=== PATIENT | male | born 1995 | race Hispanic/Latino ===

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

== ENCOUNTER 2017-11-24 08:47 | Emergency (ER) | payer MEDICAID, OTHER ==
[2017-11-24 08:57] VITALS: BP 151/107
[2017-11-24 09:18] LABS: Basophils # (Auto) 0.1 K/mm3 (0.0-0.1); Basophils % (Auto) 0.8 % (0.0-1.8); Eosinophils # (Auto) 0.3 K/mm3 (0.0-0.4); Eosinophils % (Auto) 2.4 % (0.0-4.3); Hematocrit 47.5 % (35.5-45.6); Hemoglobin 15.9 gm/dl (11.8-15.2); Lymphocytes # (Auto) 3.6 K/mm3 (1.2-5.4); Lymphocytes % (Auto) 34.4 % (13.4-35.0); Mean Corpuscular HGB Conc 34 % (32-34); Mean Corpuscular Hemoglobin 31 pg (28-32); Mean Corpuscular Volume 92 fl (84-94); Monocytes # (Auto) 0.8 K/mm3 (0.0-0.8); Monocytes % (Auto) 7.7 % (0.0-7.3); Platelet Count 367 K/mm3 (140-440); Red Blood Count 5.19 M/mm3 (3.65-5.03); Red Cell Distribution Width 12.7 % (13.2-15.2)
[2017-11-24 09:33] LABS: Bilirubin,Urine NEG (Negative); Blood,Urine NEG (Negative); Color,Urine Yellow (Yellow); Mucus,Urine 2+ /HPF
[2017-11-24 09:35] LABS: BUN/Creatinine Ratio 7; Blood Urea Nitrogen 6 mg/dL (9-20); Calcium 8.9 mg/dL (8.4-10.2); Hemolysis Index 6
[2017-11-24 09:38] LABS: Cocaine Screen,Urine PRESUMPTIVE NEGATIVE; Methadone Screen,Urine PRESUMPTIVE NEGATIVE; Opiate Screen,Urine PRESUMPTIVE NEGATIVE
[2017-11-24 09:55] LABS: Amphetamine Screen,Urine PRESUMPTIVE POSITIVE; Benzodiazepines Screen,Urine PRESUMPTIVE POSITIVE; Cannabinoid Screen,Urine PRESUMPTIVE POSITIVE
--- NOTE | 2017-11-24 11:45 | Emergency Department Report ---
ED Psych HPI - General Chief Complaint: Psych Stated Complaint: MEDICAL CLEARENCE Time Seen by Provider: 11/24/17 10:49 Source: patient Mode of arrival: Ambulatory - History of Present Illness Initial Comments: This is a 21-year-old man that reports to the emergency department requesting medical clearance for "detox". It appears that he communicated with anchor prior to arrival. He was told I assume to get medical clearance here. Unfortunately the patient is unwilling to tell me what sort of drugs he needs detox from. He will not identify any substances. He does not admit depression. He does not admit to suicidal thoughts or violent ideation. He denies overdose Apparently he has been here for overdose in the past. I did inform him that it is difficult to place him for a detox if he is willing to provide a history. Not withstanding that we proceeded with dental health evaluation. I told the patient that the counselor would speak to him and I would continue with his medical clearance. However, he eloped perhaps a half hour later. MD Complaint: other -: month(s), year(s) Associated Psychiatric Symptoms: none History of same: Yes Associated Symptoms: denies other symptoms - Related Data Home Medications Medication Instructions Recorded Confirmed Last Taken Quetiapine Fumarate [SEROquel XR] 2 tab PO QHS 10/15/16 10/19/16 10/14/16 600 MG Divalproex ER [DepaKOTE ER] 1,000 mg PO HS 10/20/16 10/20/16 Unknown Previous Rx's Medication Instructions Recorded Last Taken Type Clindamycin [Clindamycin CAP] 450 mg PO TID #54 capsule 10/20/16 Unknown Rx Allergies Allergy/AdvReac Type Severity Reaction Status Date / Time No Known Allergies Allergy Verified 10/19/16 00:45 ED Review of Systems ROS: Stated complaint: MEDICAL CLEARENCE Other details as noted in HPI Comment: All other systems reviewed and negative (patient denies any symptoms. However, he is on it willing to provide a history of his substance abuse.) ED Past Medical Hx - Past Medical History Previous Medical History?: Yes Hx Hypertension: No Hx Heart Attack/AMI: No Hx Congestive Heart Failure: No Hx Deep Vein Thrombosis: No Hx Pulmonary Embolism: No Hx GERD: No Hx Liver Disease: No Hx Renal Disease: No Hx Sickle Cell Disease: No Hx Headaches / Migraines: No Hx Seizures: No Hx Kidney Stones: No Hx Psychiatric Treatment: Yes Hx Asthma: No Hx COPD: No Hx Tuberculosis: No Hx Dementia: No Additional medical history: fx skull - Surgical History Past Surgical History?: No - Social History Smoking Status: Current Every Day Smoker Substance Use Type: Methamphetamines, Other - Medications Home Medications: Home Medications Medication Instructions Recorded Confirmed Last Taken Type Quetiapine Fumarate [SEROquel XR] 2 tab PO QHS 10/15/16 10/19/16 10/14/16 History 600 MG Clindamycin [Clindamycin CAP] 450 mg PO TID #54 capsule 10/20/16 Unknown Rx Divalproex ER [DepaKOTE ER] 1,000 mg PO HS 10/20/16 10/20/16 Unknown History ED Physical Exam - General Limitations: No Limitations General appearance: alert, in no apparent distress - Head Head exam: Present: atraumatic, normocephalic - Eye Eye exam: Present: normal appearance. Absent: scleral icterus - ENT ENT exam: Present: mucous membranes moist - Neck Neck exam: Present: normal inspection. Absent: tenderness, meningismus - Respiratory Respiratory exam: Present: normal lung sounds bilaterally. Absent: respiratory distress - Cardiovascular Cardiovascular Exam: Present: regular rate, normal rhythm. Absent: systolic murmur, diastolic murmur, rubs, gallop - GI/Abdominal GI/Abdominal exam: Present: soft, normal bowel sounds. Absent: distended, tenderness, guarding, rebound, rigid - Rectal Rectal exam: Present: deferred - Extremities Exam Extremities exam: Present: normal inspection - Back Exam Back exam: Present: normal inspection - Neurological Exam Neurological exam: Present: alert, oriented X3, CN II-XII intact. Absent: motor sensory deficit - Psychiatric Psychiatric exam: Present: normal mood, flat affect - Skin Skin exam: Present: warm, dry, intact, normal color. Absent: rash ED Course Vital Signs 11/24/17 08:53 Temperature 97.7 F Pulse Rate 123 H Respiratory 18 Rate Blood Pressure 151/107 O2 Sat by Pulse 98 Oximetry - Reevaluation(s) Reevaluation #1: The patient eloped to mental health counselor evaluating his options for detox. 11/24/17 11:46 ED Medical Decision Making - Lab Data Result diagrams: 11/24/17 08:58 11/24/17 08:58 Laboratory Results - last 24 hr 11/24/17 11/24/17 11/24/17 08:58 08:58 08:58 WBC RBC Hgb Hct MCV MCH MCHC RDW Plt Count Lymph % (Auto) [place] % (Auto) Eos % (Auto) Baso % (Auto) Lymph # [place] # Eos # Baso # Seg Neutrophils % Seg Neutrophils # Sodium 143 Potassium 4.3 Chloride 100.9 Carbon Dioxide 30 Anion Gap 16 BUN 6 L Creatinine 0.9 Estimated GFR > 60 BUN/Creatinine Ratio 7 Glucose 125 H Calcium 8.9 Urine Color Urine Turbidity Urine pH Ur Specific [place] Urine Protein Urine Glucose (UA) Urine Ketones Urine Blood Urine Nitrite Urine Bilirubin Urine Urobilinogen Ur Leukocyte Esterase Urine WBC (Auto) Urine RBC (Auto) U Epithel Cells (Auto) Urine Mucus Salicylates < 0.3 L Urine Opiates Screen Urine Methadone Screen Acetaminophen < 5.0 L Ur Barbiturates Screen Ur Phencyclidine Scrn Ur Amphetamines Screen U Benzodiazepines Scrn Urine Cocaine Screen U Marijuana (THC) Screen Drugs of Abuse Note Plasma/Serum Alcohol 11/24/17 11/24/17 11/24/17 08:58 08:58 09:05 WBC 10.4 RBC 5.19 H Hgb 15.9 H Hct 47.5 H MCV 92 MCH 31 MCHC 34 RDW 12.7 L Plt Count 367 Lymph % (Auto) 34.4 [place] % (Auto) 7.7 H Eos % (Auto) 2.4 Baso % (Auto) 0.8 Lymph # 3.6 [place] # 0.8 Eos # 0.3 Baso # 0.1 Seg Neutrophils % 54.7 Seg Neutrophils # 5.7 Sodium Potassium Chloride Carbon Dioxide Anion Gap BUN Creatinine Estimated GFR BUN/Creatinine Ratio Glucose Calcium Urine Color Yellow Urine Turbidity Clear Urine pH 5.0 Ur Specific [place] 1.026 Urine Protein 30 mg/dl Urine Glucose (UA) Neg Urine Ketones Tr Urine Blood Neg Urine Nitrite Neg Urine Bilirubin Neg Urine Urobilinogen 2.0 Ur Leukocyte Esterase Neg Urine WBC (Auto) 1.0 Urine RBC (Auto) 2.0 U Epithel Cells (Auto) < 1.0 Urine Mucus 2+ Salicylates Urine Opiates Screen Urine Methadone Screen Acetaminophen Ur Barbiturates Screen Ur Phencyclidine Scrn Ur Amphetamines Screen U Benzodiazepines Scrn Urine Cocaine Screen U Marijuana (THC) Screen Drugs of Abuse Note Plasma/Serum Alcohol < 0.01 06/07/18 09:05 WBC RBC Hgb Hct MCV MCH MCHC RDW Plt Count Lymph % (Auto) [place] % (Auto) Eos % (Auto) Baso % (Auto) Lymph # [place] # Eos # Baso # Seg Neutrophils % Seg Neutrophils # Sodium Potassium Chloride Carbon Dioxide Anion Gap BUN Creatinine Estimated GFR BUN/Creatinine Ratio Glucose Calcium Urine Color Urine Turbidity Urine pH Ur Specific [place] Urine Protein Urine Glucose (UA) Urine Ketones Urine Blood Urine Nitrite Urine Bilirubin Urine Urobilinogen Ur Leukocyte Esterase Urine WBC (Auto) Urine RBC (Auto) U Epithel Cells (Auto) Urine Mucus Salicylates Urine Opiates Screen Presumptive negative Urine Methadone Screen Presumptive negative Acetaminophen Ur Barbiturates Screen Presumptive negative Ur Phencyclidine Scrn Presumptive negative Ur Amphetamines Screen Presumptive positive U Benzodiazepines Scrn Presumptive positive Urine Cocaine Screen Presumptive negative U Marijuana (THC) Screen Presumptive positive Drugs of Abuse Note Disclamer Plasma/Serum Alcohol Critical care attestation.: If time is entered above; I have spent that time in minutes in the direct care of this critically ill patient, excluding procedure time. ED Disposition Clinical Impression: Polysubstance abuse Disposition: ELOPED Is pt being admited?: No Does the pt Need Aspirin: No Condition: Stable Referrals: PRIMARY CARE [Primary Care Provider] - 3-5 Days Time of Disposition: 11:47
== END 2017-11-24 11:42 | disposition left against medical advice (07) ==
LOC: ED 08:47
DX: F19.10 Other psychoactive substance abuse, uncomplicated (principal); Z88.1 Allergy status to other antibiotic agents; F17.200 Nicotine dependence, unspecified, uncomplicated
CPT/HCPCS: 36415; 80048; 80307; 81001; 85025; 99283; G0480; 80320

== ENCOUNTER 2017-12-03 09:23 | Emergency (ER) | payer MEDICAID ==
[2017-12-03] MEDS ORDERED: ASPIRIN ONE (09:39)
[2017-12-03] MEDS ORDERED: ASPIRIN PO ONE (09:39)
[2017-12-03 09:40] VITALS: BP 146/99
== END 2017-12-03 09:50 | disposition left against medical advice (07) ==
LOC: ED 09:23
DX: Z00.8 Encounter for other general examination (principal); Z53.21 Procedure and treatment not carried out due to patient leaving prior to being seen by health care provider
CPT/HCPCS: 93005; 93010

== ENCOUNTER 2017-12-04 18:19 | Emergency (ER) | payer MEDICAID ==
[2017-12-04 18:41] VITALS: BP 144/99
[2017-12-04 19:20] LABS: Basophils # (Auto) 0.1 K/mm3 (0.0-0.1); Basophils % (Auto) 0.7 % (0.0-1.8); Eosinophils # (Auto) 0.1 K/mm3 (0.0-0.4); Hematocrit 44.8 % (35.5-45.6); Hemoglobin 15.3 gm/dl (11.8-15.2); Lymphocytes # (Auto) 2.5 K/mm3 (1.2-5.4); Mean Corpuscular HGB Conc 34 % (32-34); Mean Corpuscular Hemoglobin 31 pg (28-32); Mean Corpuscular Volume 90 fl (84-94); Monocytes # (Auto) 1.5 K/mm3 (0.0-0.8); Monocytes % (Auto) 12.5 % (0.0-7.3); Platelet Count 312 K/mm3 (140-440); Red Blood Count 4.97 M/mm3 (3.65-5.03); Red Cell Distribution Width 12.6 % (13.2-15.2)
[2017-12-04 19:26] LABS: Cannabinoid Screen,Urine PRESUMPTIVE NEGATIVE; Cocaine Screen,Urine PRESUMPTIVE NEGATIVE; Methadone Screen,Urine PRESUMPTIVE NEGATIVE; Opiate Screen,Urine PRESUMPTIVE NEGATIVE
[2017-12-04 19:32] LABS: BUN/Creatinine Ratio 14; Blood Urea Nitrogen 13 mg/dL (9-20); Hemolysis Index 5
[2017-12-04 19:41] LABS: Amphetamine Screen,Urine PRESUMPTIVE POSITIVE; Benzodiazepines Screen,Urine PRESUMPTIVE POSITIVE
--- NOTE | 2017-12-04 20:49 | Emergency Department Report ---
ED Medical Clearance HPI - General Chief complaint: Medical Clearance Stated complaint: MEDICAL CLEARANCE Time Seen by Provider: 12/04/17 18:53 Source: patient Mode of arrival: Ambulatory - History of Present Illness Initial comments: This is a 21-year-old male nontoxic, well nourished in appearance, no acute signs of distress presents to the ED for medical clearance to anchor log. Patient stated that he is currently going today for substance abuse and wants rehabilitation. Patient denies any symptoms. He states he is asymptomatic. Patient stated has been feeling slight depression but denies any suicidal or homicidal indication. Denies any auditory hallucination. Patient denies any chest pain, shortness of breath, fever, chills, nausea, vomiting, chest pain, shortness of breath, back pain or headache or stiff neck. Patient denies any allergies. Past medical history includes bipolar. Patient stated he takes all his medications on a daily bases. Patient stated that 2 days ago he did do benzodiazepines and amphetamines. MD Complaint: medical clearance request Alledged Intoxication: No Compliant with Home Medications: Yes Traumatic Symptoms: denies traumatic injury Associated Symptoms: denies other symptoms. denies: chest pain, shortness of breath, palpitations, diaphoresis, confusion, cough, fever/chills, headaches, anorexia, malaise, nausea/vomiting, rash, seizure, syncope, weakness Treatments Prior to Arrival: none Home medications: Home Medications Medication Instructions Recorded Confirmed Last Taken Quetiapine Fumarate [SEROquel XR] 2 tab PO QHS 10/15/16 10/19/16 10/14/16 600 MG Divalproex ER [DepaKOTE ER] 1,000 mg PO HS 10/20/16 10/20/16 Unknown Previous Rx's Medication Instructions Recorded Last Taken Type Clindamycin [Clindamycin CAP] 450 mg PO TID #54 capsule 10/20/16 Unknown Rx Allergies/Adverse reactions: Allergies Allergy/AdvReac Type Severity Reaction Status Date / Time No Known Allergies Allergy Verified 10/19/16 00:45 ED Review of Systems ROS: Stated complaint: MEDICAL CLEARANCE Other details as noted in HPI Constitutional: denies: chills, fever Eyes: denies: eye pain, eye discharge, vision change ENT: denies: ear pain, throat pain Respiratory: denies: cough, shortness of breath, wheezing Cardiovascular: denies: chest pain, palpitations Endocrine: no symptoms reported Gastrointestinal: denies: abdominal pain, nausea, diarrhea Genitourinary: denies: urgency, dysuria Musculoskeletal: denies: back pain, joint swelling, arthralgia Skin: denies: rash, lesions Neurological: denies: headache, weakness, paresthesias Psychiatric: denies: anxiety, depression Hematological/Lymphatic: denies: easy bleeding, easy bruising ED Past Medical Hx - Past Medical History Hx Hypertension: No Hx Heart Attack/AMI: No Hx Congestive Heart Failure: No Hx Deep Vein Thrombosis: No Hx Pulmonary Embolism: No Hx GERD: No Hx Liver Disease: No Hx Renal Disease: No Hx Sickle Cell Disease: No Hx Headaches / Migraines: No Hx Seizures: No Hx Kidney Stones: No Hx Psychiatric Treatment: Yes (BIPOLAR) Hx Asthma: No Hx COPD: No Hx Tuberculosis: No Hx Dementia: No Additional medical history: fx skull - Social History Smoking Status: Current Every Day Smoker Substance Use Type: Methamphetamines - Medications Home Medications: Home Medications Medication Instructions Recorded Confirmed Last Taken Type Quetiapine Fumarate [SEROquel XR] 2 tab PO QHS 10/15/16 10/19/16 10/14/16 History 600 MG Clindamycin [Clindamycin CAP] 450 mg PO TID #54 capsule 10/20/16 Unknown Rx Divalproex ER [DepaKOTE ER] 1,000 mg PO HS 10/20/16 10/20/16 Unknown History ED Physical Exam - General Limitations: No Limitations General appearance: alert, in no apparent distress - Head Head exam: Present: atraumatic, normocephalic - Eye Eye exam: Present: normal appearance - ENT ENT exam: Present: normal exam, mucous membranes moist - Neck Neck exam: Present: normal inspection, full ROM. Absent: tenderness, meningismus, lymphadenopathy - Respiratory Respiratory exam: Present: normal lung sounds bilaterally. Absent: respiratory distress, wheezes, rales, rhonchi, stridor, chest wall tenderness, accessory muscle use, decreased breath sounds, prolonged expiratory - Cardiovascular Cardiovascular Exam: Present: regular rate, normal rhythm, normal heart sounds. Absent: irregular rhythm, systolic murmur, diastolic murmur, rubs, gallop - GI/Abdominal GI/Abdominal exam: Present: soft, normal bowel sounds. Absent: distended, tenderness, guarding, rebound, rigid, diminished bowel sounds - Rectal Rectal exam: Present: deferred - Extremities Exam Extremities exam: Present: normal inspection, full ROM, normal capillary refill - Back Exam Back exam: Present: normal inspection, full ROM - Neurological Exam Neurological exam: Present: alert, oriented X3, normal gait - Psychiatric Psychiatric exam: Present: normal affect, normal mood - Skin Skin exam: Present: warm, dry, intact, normal color. Absent: rash ED Course Vital Signs 12/04/17 18:36 Temperature 98.9 F Pulse Rate 136 H Respiratory 18 Rate Blood Pressure 144/99 O2 Sat by Pulse 98 Oximetry - Reevaluation(s) Reevaluation #1: 12/04/17 20:53 Patient is speaking in full sentences with no signs of distress noted. ED Medical Decision Making - Lab Data Result diagrams: 12/04/17 19:14 12/04/17 19:14 - Medical Decision Making 21-year-old male that presents with a medical clearance. CBC and BMP obtained within normal limits. UA within normal limits. Negative for alcohol in the system. Upon urine drug screen is positive for amphetamines and benzodiazepine and otherwise are all negative. Patient is medically cleared. Patient was referred to Follow-up with a primary care doctor in 3-5 days or if symptoms worsen and continue return to emergency room as soon as possible. At time of discharge, the patient does not seem toxic or ill in appearance. No acute signs of distress noted. Patient agrees to discharge treatment plan of care. No further questions noted by the patient. ED Disposition Clinical Impression: Medical clearance for psychiatric admission, Benzodiazepine abuse, Amphetamine abuse Disposition: [id number] TO HOME OR SELFCARE Is pt being admited?: No Does the pt Need Aspirin: No Condition: Stable Instructions: Benzodiazepine Abuse (ED) Additional Instructions: Follow-up with a primary care doctor in 3-5 days or if symptoms worsen and continue return to emergency room as soon as possible. Referrals: PRIMARY CAREMD [Primary Care Provider] - 3-5 Days ARIN DIAZ MD [Staff Physician] - 3-5 Days [facility] [Outside] - 3-5 Days
== END 2017-12-04 21:06 | disposition home or self-care (01) ==
LOC: ED 18:19
DX: F15.10 Other stimulant abuse, uncomplicated (principal); F13.10 Sedative, hypnotic or anxiolytic abuse, uncomplicated; F31.9 Bipolar disorder, unspecified; F17.200 Nicotine dependence, unspecified, uncomplicated; Z79.899 Other long term (current) drug therapy
CPT/HCPCS: 36415; 80048; 80307; 85025; 99283; G0480; 80320